=== PATIENT | female | born 1990 | race Hispanic/Latino ===

== ENCOUNTER 2019-09-10 20:16 | Emergency (ER) | payer OTHER ==
[~2019-09-10] VITALS: Ht 160 cm; Wt 62.7 kg
[2019-09-10] MEDS ORDERED: DOXY1CAP60 PO (20:24)
[2019-09-10] MEDS ORDERED: KETOROLAC 60 MG/2 ML VIAL (J1885) IM ONE (21:30)
[2019-09-10] MEDS ORDERED: CEFDINIR 300 MG CAP (OMNICEF) PO ONE (21:30)
[2019-09-10] MEDS ORDERED: predniSONE 20 MG TAB PO ONE (21:30)
[2019-09-10 21:43] LABS: BASO % 0.2 % (0.0-1.0); EOS % 0.2 % (0.0-3.0); HEMATOCRIT 36.4 % (36.0-47.0); HEMOGLOBIN 11.7 g/dl (12.0-15.5); LYMPH # 1.8 10^3/uL (1.5-5.0); LYMPH % 16.7 % (24.0-44.0); MEAN CORPUSCULAR HEMOGLOBIN 31.3 pg (27.0-33.0); MEAN CORPUSCULAR HGB CONC 32.1 g/dl (32.0-36.5); MEAN CORPUSCULAR VOLUME 97.3 fl (80.0-96.0); MONO % 9.4 % (0.0-5.0); NEUTROPHILS # 7.9 10^3/uL (1.5-8.5); NEUTROPHILS % 73.2 % (36.0-66.0); PLATELET COUNT, AUTOMATED 281 10^3/uL (150-450); RED BLOOD COUNT 3.74 10^6/uL (4.00-5.40); WHITE BLOOD COUNT 10.8 10^3/uL (4.0-10.0)
[2019-09-10 22:19] LABS: MONO SCRN NEGATIVE (NEGATIVE)
[2019-09-10] MEDS ORDERED: PRED10TA2 PO (22:27)
[2019-09-10] MEDS ORDERED: CEFD300CAP PO (22:27)
[2019-09-10] MEDS ORDERED: ACETAMINOPHEN 325 MG TAB PO ONE (22:30)
[2019-09-10 22:45] VITALS: BP 120/70
== END 2019-09-10 22:44 | disposition home or self-care (01) ==
LOC: M ED 20:16
DX: J03.90 Acute tonsillitis, unspecified (principal); Z79.899 Other long term (current) drug therapy
CPT/HCPCS: 36415; 85025; 86308; 87880; 96372; 99284; J1885

== ENCOUNTER 2019-11-24 19:55 | Emergency (ER) | payer OTHER ==
[~2019-11-24] VITALS: Ht 160 cm; Wt 65.0 kg
[2019-11-24 19:55] VITALS: BP 151/75
== END 2019-11-24 21:07 | disposition home or self-care (01) ==
LOC: M ED 19:55
DX: S61.002A Unspecified open wound of left thumb without damage to nail, initial encounter (principal); W26.0XXA Contact with knife, initial encounter; Y92.099 Unspecified place in other non-institutional residence as the place of occurrence of the external cause; Y93.G1 Activity, food preparation and clean up; Y99.9 Unspecified external cause status; N63.10 Unspecified lump in the right breast, unspecified quadrant

== ENCOUNTER → 2019-11-24 | Outpatient (CLI) | payer OTHER ==
[~2019-11-24] MED LIST: CEFD300CAP PO; DOXY1CAP60 PO; PRED10TA2 PO
--- NOTE | 2019-11-24 17:01 | REP ---
Focused right breast sonography: History: 1 inch superficial mass under the right nipple. Sonographic findings: The patient was unable to point out the lump. 6 o'clock to 8 o'clock of the right breast subareolar region was scanned. Heterogeneous fibroglandular background echotexture is seen. No mass is seen. No acoustic shadowing or architectural distortion noted. Impression: BIRADS category one negative focused right breast findings: Clinical follow-up is recommended. This negative report should not dissuade one from biopsy of a palpable lump depending on its clinical characteristics. Electronically Signed by Caleb Darden MD 11/24/2019 06:57 P
== END ==
LOC: M RAD 13:03
PROVIDERS: ATTEND Physician Assistant Medical
DX: N63.10 Unspecified lump in the right breast, unspecified quadrant (principal)